=== PATIENT | female | born 1990 | race Caucasian/White ===

== ENCOUNTER 2018-07-19 15:32 | Emergency (ER) | payer MEDICAID ==
[2018-07-19 15:35] VITALS: RESP 18
[2018-07-19 16:50] LABS: BASO # 0.1 K/uL (0.0-0.2); BASO % 1.1 % (0.0-2.0); EOS # 0.1 K/uL (0.0-0.7); EOS % 0.5 % (0.0-4.0); HEMOGLOBIN 13.5 g/dL (12.0-16.0); LYMPH # 2.8 K/uL (1.0-4.3); LYMPH % 21.5 % (20.0-40.0); MEAN CELL VOLUME 92.4 fl (81.0-99.0); MEAN CORPUSCULAR HEMOGLOBIN 31.1 pg (27.0-31.0); MEAN CORPUSCULAR HGB CONC 33.7 g/dL (33.0-37.0); MEAN PLATELET VOLUME 8.8 fl (7.2-11.7); MONO # 0.9 K/uL (0.0-0.8); MONO % 6.9 % (0.0-10.0); NEUT # 9.2 K/uL (1.8-7.0); RBC 4.36 Mil/uL (3.80-5.20); RED CELL DISTRIBUTION WIDTH 13.5 % (11.5-14.5); WHITE BLOOD COUNT 13.1 K/uL (4.8-10.8)
[2018-07-19 16:54] LABS: SQUAMOUS EPITHIAL 3 /hpf (0-5); URINE BACTERIA RARE (<OCC); URINE BILIRUBIN NEGATIVE (NEGATIVE); URINE BLOOD NEGATIVE (NEGATIVE); URINE CLARITY SLIGHTY-CLOUDY (Clear); URINE COLOR YELLOW (YELLOW); URINE GLUCOSE (UA) NEG (NEGATIVE); URINE LEUKOCYTE ESTERASE NEG Leu/uL (Negative); URINE PROTEIN NEGATIVE (NEGATIVE); URINE UROBILINOGEN 0.2-1.0 mg/dL (0.2-1.0)
[2018-07-19 17:04] LABS: BLOOD UREA NITROGEN 14 mg/dl (7-17); CALCIUM 9.7 mg/dL (8.4-10.2); GFR NON-AFRICAN AMERICAN > 60; LIPASE 83 U/L (23-300)
[2018-07-19 17:10] LABS: ALB/GLOB RATIO 1.1 (1.0-2.1); ALBUMIN 4.5 g/dL (3.5-5.0); ALT/SGPT 19 U/L (9-52); AST/SGOT 41 U/L (14-36)
--- NOTE | 2018-07-19 17:17 | US ---
Date of service: 07/19/2018 PROCEDURE: OB Pelvic Ultrasound HISTORY: pelvic back pain, 5wks preg COMPARISON: None available. FINDINGS: UTERUS: Single Live intrauterine gestation. Yolk sac is visualized. pole is not identified on the current examination Gestational sac diameter measures 1.2 cm equivalent to 5 weeks and 2 days of gestational age. age (Ultrasound estimated): 5 weeks and 2 days Date of delivery (Ultrasound estimated) : 03/19/2019 Judith-gestational hemorrhage: None. Uterus measures cm. No mass CERVIX: Long and closed. No cervical abnormality seen. RIGHT OVARY: Measures 2.7 x 2.2 x 2.9 cm. No mass. Normal flow. There is a 1.8 x 1.4 x 1.5 cm corpus luteum cyst. LEFT OVARY: Measures 3.3 x 1.8 x 1.7 cm. No mass. Normal flow. FREE FLUID: None. OTHER FINDINGS: None. IMPRESSION: Single intrauterine gestational sac with mean gestational age of 5 weeks and 2 days. Yolk sac is visualized however pole is not identified on the current examination. Clinical and ultrasound follow-up is recommended to assess viability.
--- NOTE | 2018-07-19 19:20 | ED PDOC ---
HPI: Female Pain Time Seen by Provider: 07/19/18 16:14 Chief Complaint (Nursing): Female Genitourinary Chief Complaint (Provider): spotting, concern for elevated BP while History Per: Patient History/Exam Limitations: no limitations Onset/Duration Of Symptoms: Days (3-4), Intermittent Episodes Current Symptoms Are (Timing): Intermittent Episodes Severity: Mild Quality Of Discomfort: denies: Cramping, Burning, Pressure Associated Symptoms: denies: Nausea, Vomiting, Diarrhea Additional Complaint(s): 28yo female w one prior TOP presents c/o lower back pain, vaginal spotting on toilet paper when wiping, and concern for elevated BP- first seen in [facility] on BP cuff earlier today prompting ED visit. States prior about 7 yrs ago complicated by HTN and "almost preeclampsia" requiring delivery at 35weeks. Has appt w Dr Gentile in mid August no prior care yet to date. Past Medical History Reviewed: Historical Data, Nursing Documentation, Vital Signs Vital Signs: Last Vital Signs Temp 98.1 F 07/19/18 15:36 Pulse 94 H 07/19/18 15:36 Resp 18 07/19/18 15:36 BP 139/67 07/19/18 16:40 Pulse Ox 98 07/19/18 15:36 - Medical History PMH: No Chronic Diseases - Surgical History Surgical History: - Family History Family History: States: Unknown Family Hx - Immunization History Hx Tetanus Toxoid Vaccination: No Hx Influenza Vaccination: Yes Hx Pneumococcal Vaccination: Yes - Home Medications Home Medications: Ambulatory Orders Medication Instructions Recorded DiphenhydrAMINE [Benadryl] 25 mg PO .Q4-6 H #30 cap 10/17/15 Famotidine [Pepcid] 20 mg PO BID #20 tab 10/17/15 metroNIDAZOLE [Flagyl] 500 mg PO BID #14 tab 10/17/15 predniSONE [predniSONE Tab] 2 tab PO DAILY #8 tab 10/17/15 Clotrimazole/Betamethasone 15 gm EXT BID 10 Days tube 02/28/17 [Lotrisone] Dicyclomine [Bentyl] 20 mg PO TID PRN #10 tab 09/28/17 Famotidine [Pepcid] 20 mg PO BID #20 tab 09/28/17 - Allergies Allergies/Adverse Reactions: Allergies Allergy/AdvReac Type Severity Reaction Status Date / Time peanut Allergy RASH Verified 07/19/18 15:36 Review of Systems ROS Statement: Except As Marked, All Systems Reviewed And Found Negative Constitutional: Negative for: Fever ENT: Negative for: Ear Pain Cardiovascular: Negative for: Chest Pain Respiratory: Negative for: Cough, Shortness of Breath Gastrointestinal: Positive for: Nausea Genitourinary Female: Positive for: Vaginal Bleeding (spotting), Pelvic Pain. Negative for: Dysuria Musculoskeletal: Negative for: Neck Pain Skin: Negative for: Rash, Lesions, Jaundice Neurological: Negative for: Weakness, Numbness, Headache Psych: Negative for: Depression Physical Exam - Reviewed Nursing Documentation Reviewed: Yes Vital Signs Reviewed: Yes - Physical Exam Appears: Positive for: Non-toxic, No Acute Distress Head Exam: Positive for: ATRAUMATIC, NORMAL INSPECTION, NORMOCEPHALIC Skin: Positive for: Normal Color, Warm, DRY Eye Exam: Positive for: EOMI, Normal appearance, PERRL ENT: Positive for: Normal ENT Inspection Neck: Positive for: Normal, Painless ROM Cardiovascular/Chest: Positive for: Regular Rate, Rhythm Respiratory: Positive for: CNT, Normal Breath Sounds Gastrointestinal/Abdominal: Positive for: Soft. Negative for: Tenderness, Guarding Back: Positive for: Normal Inspection Extremity: Positive for: Normal ROM Neurologic/Psych: Positive for: Alert, Oriented - Laboratory Results Result Diagrams: 07/19/18 16:40 07/19/18 16:40 - ECG O2 Sat by Pulse Oximetry: 98 Medical Decision Making Medical Decision Making: workup for r/o ectopic initiated Accession No. : [id number] Patient Name / ID : ROBERT CUMMINGS / [id number] Exam Date : 07/19/2018 16:51:21 ( Approved ) Study Comment : Sex / Age : F / 28Y Creator : Jessie Cast MD Dictator : Jessie Cast MD Hospital Social Worker : Wound Nurse : Jessie Cast MD Approver2 : Report Date : 07/19/2018 17:13:47 My Comment : Date of service: 07/19/2018 PROCEDURE: OB Pelvic Ultrasound HISTORY: pelvic back pain, 5wks preg COMPARISON: None available. FINDINGS: UTERUS: Single Live intrauterine gestation. Yolk sac is visualized. pole is not identified on the current examination Gestational sac diameter measures 1.2 cm equivalent to 5 weeks and 2 days of gestational age. age (Ultrasound estimated): 5 weeks and 2 days Date of delivery (Ultrasound estimated) : 03/19/2019 Judith-gestational hemorrhage: None. Uterus measures cm. No mass CERVIX: Long and closed. No cervical abnormality seen. RIGHT OVARY: Measures 2.7 x 2.2 x 2.9 cm. No mass. Normal flow. There is a 1.8 x 1.4 x 1.5 cm corpus luteum cyst. LEFT OVARY: Measures 3.3 x 1.8 x 1.7 cm. No mass. Normal flow. FREE FLUID: None. OTHER FINDINGS: None. IMPRESSION: Single intrauterine gestational sac with mean gestational age of 5 weeks and 2 days. Yolk sac is visualized however pole is not identified on the current examination. Clinical and ultrasound follow-up is recommended to assess viability. Rh+ D/w Dr Lopez wrong address clerk OB recommends BP check in [address] Gentile no further treatment indicated at this time Disposition - Clinical Impression Clinical Impression: Elevated blood pressure reading, Threatened - Patient ED Disposition Is Patient to be Admitted: No Counseled Patient/Family Regarding: Studies Performed - Disposition Disposition: Routine/Home Disposition Time: 19:23 Condition: STABLE Additional Instructions: Avoid salt in diet. Call Dr Gentile and request earlier appointment and blood pressure evaluation and repeat ultrasound. Return to ER for any worse or new symptoms. Recommend pelvic rest. Instructions: Bleeding With (DC), High Blood Pressure in Adults Forms: [employer] ([place])
[2018-07-19 19:39] VITALS: BP 140/86; PULSE 81; TEMP 98.4
[2018-07-19 19:45] VITALS: O2SAT 98
== END 2018-07-19 19:43 | disposition home or self-care (01) ==
LOC: H.ER 15:32
DX: O20.0 Threatened abortion (principal); Z3A.01 Less than 8 weeks gestation of pregnancy; O26.891 Other specified pregnancy related conditions, first trimester; O16.9 Unspecified maternal hypertension, unspecified trimester